=== PATIENT | male | born 1985 | race Caucasian/White ===

== ENCOUNTER → 2018-08-21 17:57 | Outpatient (CLI) | payer OTHER, SELFPAY ==
--- NOTE | 2018-08-21 | DI.MRI.S_ITS ---
PROCEDURE: MR THORACIC SPINE WO CON INDICATIONS: mid back pain TECHNIQUE: Noncontrast sagittal T1 spine echo and T2 fast spin echo, sagittal STIR, axial T1 and T2 fast spin echo through the thoracic spine. COMPARISON: [facility], CR, XR THORACIC SPINE 3 VIEWS, 08/02/2018, 10:12. FINDINGS: Image quality: Excellent. Alignment and Curvature: There is normal bony alignment. Bone Marrow: Small, benign, intraosseous hemangiomas noted in the T4 and T6 vertebral bodies. Mild reactive endplate changes noted adjacent to the T6-T7, T7-T8 and T8-T9 disc. No acute vertebral body compression fractures. Spinal Cord: Visualized spinal cord is normal in size and signal. Paraspinous Soft Tissues: No paravertebral masses. Miscellaneous: Loss of signal noted at T7-T8, T8-T9, T9-T10 discs. Loss of disc height noted at T7-T8-T8-T9 disc. Small central T7-T8 disc protrusion noted. No central stenosis. No neural foraminal narrowing. No neural impingement. IMPRESSION: 1. Moderate T7-T8 and T8-T9 degenerative disc disease. Mild T9-T10 degenerative disc disease. 2. No central stenosis. 3. No neural foraminal narrowing. 4. No neural impingement. Dictated by: Linette Grady MD, PhD on 08/22/2018 at 10:48 Approved by: Linette Grady MD, PhD on 08/22/2018 at 10:55
--- NOTE | 2018-08-21 | DI.MRI.S_ITS ---
PROCEDURE: MR CERVICAL SPINE W/O INDICATIONS: neck pain TECHNIQUE: Noncontrast sagittal T1 spin echo and T2 fast spin echo, sagittal STIR, foraminal oblique sagittal T2 fast spin echo, axial gradient echo or T2 fast spin echo through the cervical spine. After the administration of contrast, axial and sagittal T1 spin echo with fat saturation through the cervical spine. COMPARISON: [facility], CR, XR CERVICAL SPINE WITH OBLIQUES, 08/02/2018, 10:12. FINDINGS: Image quality: Excellent. Alignment and curvature: There is normal bony alignment. Marrow: Marrow is normal in overall signal, without suspicious enhancement. Spinal cord: Visualized spinal cord has normal size and signal. No cerebellar tonsillar herniation. No abnormal intramedullary enhancement. Paraspinous soft tissues: No paravertebral masses or suspicious enhancement. C2-3: Normal appearance. C3-4: Loss of disc signal. Mild, diffuse disc bulge. No central stenosis. Moderate right neural foraminal narrowing. No neural impingement. C4-5: Loss of disc signal. Minimal, diffuse disc bulge. Mild bilateral facet hypertrophy. No central stenosis. Mild bilateral neural foraminal narrowing. No neural impingement. C5-6: Loss of disc signal. Mild bilateral facet hypertrophy. No central stenosis. No neural foraminal narrowing. No neural impingement. C6-7: Normal appearance. C7-T1: Normal appearance. IMPRESSION: 1. Mild multilevel degenerative disc disease. 2. Mild multilevel facet arthropathy. 3. No central stenosis. 4. Moderate right C3-C4 neural foraminal narrowing. Mild bilateral C4-C5 neural foraminal narrowing. 5. No neural impingement. Dictated by: Linette Grady MD, PhD on 08/22/2018 at 8:10 Approved by: Linette Grady MD, PhD on 08/22/2018 at 11:45
== END ==
PROVIDERS: Visit Provider Family Medicine
DX: M51.34 Other intervertebral disc degeneration, thoracic region (principal); M50.31 Other cervical disc degeneration, high cervical region; M48.02 Spinal stenosis, cervical region; M47.812 Spondylosis without myelopathy or radiculopathy, cervical region
CPT/HCPCS: 72142; 72146

== ENCOUNTER → 2018-09-24 07:44 | Outpatient (CLI) | payer OTHER, SELFPAY ==
--- NOTE | 2018-09-24 | DI.ECHO.S_ITS ---
[facility]---------+ [facility] +---------+ : : [address] : : : : [id number] : : : : Phone: [phone]+ Echocardiogram Report + + :Name: SHAMAR VALENZUELA Study Date: 09/24/2018 Height: 72 in : :[facility] Exam Location: [place] Weight: 245 lb : : Gender: Male BSA: 2.3 m2 : :: 1985 Age: 33 yrs BP: 110/90 mmHg: :Reason For Study: Chest pain : : Performed By: Vivian Page : :Referring: DAVID CABRERA : + + Interpretation Summary The left ventricle is normal in size. The ejection fraction is estimated to be 55-60%. The right ventricle is normal in size and function. No significant valvular pathology seen. There is no pericardial effusion. Procedure: A two-dimensional transthoracic echocardiogram with color flow and Doppler was performed. The study quality was technically adequate. There is no prior echocardiogram noted for this patient. The patient was in normal sinus rhythm during the exam. Left Ventricle: The left ventricle is normal in size. There is normal left ventricular wall thickness. There is no thrombus. A false chord is noted (normal variant). The ejection fraction is estimated to be 55-60%. There are no focal wall motion abnormalities. Diastolic parameters suggest a relaxation abnormality of the left ventricle, consistent with probable normal filling pressures. Right Ventricle: The right ventricle is normal in size and function. Atria: Both atria are normal in size. There is no Doppler evidence for an interatrial shunt. Mitral Valve: The mitral valve is normal in structure and function. There is no mitral regurgitation noted. Aortic Valve: The aortic valve is trileaflet. The aortic valve opens well. There is no aortic valve stenosis. No aortic regurgitation is present. Tricuspid Valve: The tricuspid valve is normal in structure and function. There is a trace or physiologic amount of tricuspid regurgitation. Pulmonary artery pressures cannot be estimated because of the lack of a measurable TR jet velocity. Pulmonic Valve: The pulmonic valve is not well visualized. There is a trace or physiologic amount of pulmonic regurgitation. Great Vessels: The aortic root is normal size. The ascending aorta is at the upper limits of normal in size. The pulmonary artery is not well visualized, but is probably normal size. The IVC is of normal diameter and collapses greater than 50% with a sniff. This suggests a low right atrial pressure of 3 mm Hg. Pericardium/ Pleura There is no pericardial effusion. There is no pleural effusion. MMode/2D Measurements & Calculations LVIDd: 4.3 cm LVOT diam: 2.3 cm LVIDs: 2.8 cm Ao root diam: 3.3 cm FS: 33.7 % asc Aorta Diam: 3.5 cm EPSS: 0.40 cm IVSd: 1.0 cm LVPWd: 0.76 cm LV rice. diameter/BSA (cm/m^2): 1.8 LV sys. diameter/BSA (cm/m^2): 1.2 LA A2 area: 15.7 cm2 RA long axis: 5.4 cm LA A4 area: 15.7 cm2 RA area: 16.7 cm2 LA length (vol): 5.4 cm RA vol: 43.8 ml LA vol: 38.7 ml RA : 18.9 ml/m2 LA vol index: 16.7 ml/m2 IVC diam: 1.8 cm RVD1 (basal): 4.1 cm TAPSE: 2.2 cm Doppler Measurements & Calculations Ao V2 max: 95.6 cm/sec LVOT Max Cyrus: 57.0 cm/sec Ao V2 mean: 74.3 cm/sec LV V1 max P.3 mmHg Ao max P.7 mmHg LV V1 VTI: 9.4 cm Ao mean P.3 mmHg DONNA(I,D): 2.5 cm2 Ao V2 VTI: 14.8 cm DONNA(V,D): 2.4 cm2 sev ratio: 0.63 DONNA indexed to BSA (cm^2/m^2): 1.1 MV E max cyrus: 53.0 cm/sec PA V2 max: 65.3 cm/sec MV A max cyrus: 58.3 cm/sec PA V2 mean: 47.4 cm/sec MV E/A: 0.91 PA mean P.96 mmHg Med Peak E' Cyrus: 6.4 cm/sec PA Accel Time: 0.12 sec E/E' med: 8.3 Lat Peak E' Cyrus: 9.6 cm/sec E/E' lat: 5.5 E/e' average: 6.9 MV dec time: 0.12 sec MV P1/2t: 33.1 msec MV P1/2t max cyrus: 52.2 cm/sec SV(LVOT): 37.6 ml MVA(P1/2william): 6.6 cm2 Reading Physician:IVETH
== END ==
PROVIDERS: PCP Family Medicine; Visit Provider Physician Assistant
DX: R07.9 Chest pain, unspecified (principal)
CPT/HCPCS: 93306

== ENCOUNTER → 2018-10-30 13:24 | Outpatient (CLI) | payer OTHER, SELFPAY ==
--- NOTE | 2018-10-30 | DI.MRI.S_ITS ---
PROCEDURE: MR WRIST LT W CON INDICATIONS: PAIN IN LEFT WRIST TECHNIQUE: After the administration of 3-4 mL of dilute intra-articular Gadolinium contrast into the radiocarpal compartment, coronal T1 spin echo with fat saturation and T2 fast spin echo with fat saturation, axial T1 spin echo and T2 fast spin echo with fat saturation, sagittal T1 spin echo with and without fat saturation through the wrist. COMPARISON: None. FINDINGS: Image quality: Excellent. Bones and cartilage: The carpal bones are normally aligned. No bone marrow contusions or fractures. No evidence for avascular necrosis. Overlying cartilage surfaces appear normal. Carpal ligaments: The scapholunate and lunotriquetral ligaments appear intact, without gadolinium extravasation into the mid-carpal compartment. The radioscaphocapitate and radiolunotriquetral ligaments appear intact. The arcuate ligament and short radiolunate ligament also appear normal. The dorsal intercarpal and radiotriquetral ligaments appear intact. On sagittal images, the pisohamate ligament appears intact. Triangular fibrocartilage complex: There is a tear of the triangular fibrocartilage (series 4, image 8) with gadolinium extravasation into the distal radioulnar joint. The adjacent meniscal homolog appears normal. The ulnar collateral ligament appears intact. The extensor carpi ulnaris tendon is normal in location and morphology. Tendons and soft tissues: The carpal tunnel structures appear normal, including the median nerve. The ulnar nerve appears normal within Guyon's canal. All six extensor tendon compartments demonstrate normal morphology. Small amount of fluid without presence of gadolinium noted in the second and third extensor compartments compatible with mild tenosynovitis. No soft tissue ganglion cysts. IMPRESSION: 1. Central tear of triangle fibrocartilage. 2. Mild second and third extensor compartment tenosynovitis. Dictated by: Linette Grady MD, PhD on 10/30/2018 at 15:42 Approved by: Linette Grady MD, PhD on 10/31/2018 at 8:50
--- NOTE | 2018-10-30 | DI.RAD.S_ITS ---
PROCEDURE: FL ARTHROGRAM WRIST LT INDICATIONS: PAIN IN LEFT WRIST TECHNIQUE: After informed consent had been obtained, the wrist was examined fluoroscopically, and a site chosen for injection of the radiocarpal compartment from a dorsal approach. Skin was prepped and draped in a sterile fashion and 1% lidocaine infiltrated from the skin down to the articular surface. A hypodermic needle was then introduced into the articular space and a modest amount of contrast medium was instilled confirming intra-articular needle tip placement. This was followed by approximately 4 mL of a dilute gadolinium solution. Needle was removed and dressing was applied. The patient experienced no complications throughout the procedure and left the fluoroscopic suite in no apparent distress. FINDINGS: A single fluoroscopic spot image demonstrates intra-articular location to injected iodinated contrast. IMPRESSION: Successful fluoroscopic-guided administration of dilute Gadolinium solution for wrist MR arthrogram. Dictated by: Torsten Roldan M.D. on 10/30/2018 at 15:06 Approved by: Torsten Roldan M.D. on 10/30/2018 at 15:07
== END ==
PROVIDERS: PCP Family Medicine; Visit Provider Orthopaedic Surgery
DX: M25.532 Pain in left wrist (principal); M65.832 Other synovitis and tenosynovitis, left forearm; S63.592A Other specified sprain of left wrist, initial encounter
CPT/HCPCS: 25246; 73222; 77002

== ENCOUNTER → 2018-12-13 14:13 | Outpatient (CLI) | payer OTHER, SELFPAY ==
--- NOTE | 2018-12-13 14:16 | DI.MRI.S_ITS ---
PROCEDURE: MR HEAD/BRAIN WO/W CON INDICATIONS: Migraine and cluster headaches TECHNIQUE: Noncontrast axial T1 spin echo, axial T2 fast spin echo, sagittal and axial FLAIR, coronal T2 fast spin echo, axial gradient echo, axial diffusion and ADC through the brain. After the administration of contrast, axial and coronal 3D VIBE or T1 spin echo with fat saturation through the brain. COMPARISON: None. FINDINGS: Image quality: Excellent. CSF Spaces: Basal cisterns are patent. No extra-axial fluid collections. Ventricles are normal in size and shape. Brain: No midline shift. No intracranial bleeds or masses. No abnormal intracranial enhancement. The brainstem appears normal. Diffusion-weighted images demonstrate no acute ischemic insults. No chronic ischemic insults. Normal intravascular flow voids are present. Skull and face: Calvarial marrow is normal in signal. Orbits appear normal. Sinuses: Sinuses and mastoids appear clear. IMPRESSION: Unremarkable intracranial study, without an imaging explanation found for the patient's presenting history of headache. No masses or abnormal enhancement can be seen. Dictated by: Luke Love M.D. on 12/13/2018 at 14:28 Approved by: Luke Love M.D. on 12/13/2018 at 14:29
== END ==
PROVIDERS: PCP Family Medicine; Visit Provider Family Medicine
DX: G44.009 Cluster headache syndrome, unspecified, not intractable (principal)
CPT/HCPCS: 70553

== ENCOUNTER 2019-04-01 07:18 | Outpatient (CLI) | payer OTHER, SELFPAY ==
[2019-04-01] VITALS (8 sets, daily range): BP systolic 120–138; BP diastolic 71–99; PULSE 74–103; RESP 16–94; TEMP 36.3; O2SAT 92–100
--- NOTE | 2019-04-01 07:20 | DI.RAD.S_ITS ---
PROCEDURE: PAIN C/T INTERLAMINAR INJECT INDICATIONS: SPONDYLOSIS FINDINGS: Fluoroscopic spot filming was performed to verify placement of spinal needles at the T8-T9 level(s), as labeled on the films. Appropriate location(s) of the needle tip(s) was confirmed by injection of iodinated contrast. IMPRESSION: Fluoroscopy for pain management. Dictated by: Kip Whitley M.D. on 04/01/2019 at 9:42 Approved by: Kip Whitley M.D. on 04/01/2019 at 9:43
[2019-04-01] MEDS: MIDAZOLAM 5 MG/5 ML VIAL IV (08:46)
[2019-04-01] MEDS: fentaNYL 100 MCG/2 ML INJ 50 MCG IV (08:47)
[2019-04-01] MEDS: LIDOCAINE 1% 20 ML 5 ML INJ (08:50)
[2019-04-01] MEDS: IOPAMIDOL 15 ML VIAL 3 ML INJ (08:50)
[2019-04-01] MEDS: DEXAMETHASONE 10 MG/ML VIAL 30 MG INJ (08:51)
--- NOTE | 2019-04-01 08:56 | PC.NURSE ---
ASSISTING PT OFF TABLE AND TRANSPORTING TO POST PROC AREA IN STABLE CONDITION. PT RN CARE PASSED ON TO DEDE Ruano RN.
--- NOTE | 2019-04-01 09:00 | P.PCN_ITS ---
Procedures Date/Time Date of procedure: 04/01/19 Time of procedure: 09:00 General Procedure description: Preop diagnosis: Thoracic stenosis with HNP Postprocedure diagnosis: Thoracic stenosis with HNP Physician: Riaz Escamilla D.O. Indications: Gatito is referred by Dr. Jauregui for treatment of thoracic DDD/DJD with radiculopathy Description of procedure: Fluoroscopic guided, contrast controlled T8-9 translaminar epidural steroid inj ection with conscious sedation. Following review of allergy review potential side effects and complications, including, but not necessarily limited to, infection, allergic reaction, local tissue breakdown, temporary as well as permanent nerve injury, stroke, paralysis and possible , the patient indicated that they understood and agreed to proceed. An informed consent document was signed by the patient, witnessed by the nurse, and placed in the patient's chart. Additionally other treatment options including modalities, medications and physical therapy were reviewed with the patient. After review of previous anaesthesic history and IV conscious sedation the patient was deemed safe to proceed with todays procedure with IV conscious sedation as ASA class II designation. Safety time-out was performed to confirm patient ID, procedure to be performed and site of procedure. IV sedation was accomplished with a combination of 3mg of Versed and 50mcg of Fentanyl administered by the RN after DO order, titrated to patient comfort during the course of the procedure while the patient remained responsive to all verbal commands In the prone position, following sterile prep and drape of the thoracic region the T8-9 translaminar space was identified fluoroscopically. The skin was anesthetized via 25 gauge 20 mm sheath with 1% lidocaine solution. At this point a 20 gauge epidural needle was atraumatically introduced and advanced under fluoroscopic guidance into the region of the T8-9 translaminar space depth was confirmed on lateral view. Radiographic data, including multiple fluoroscopic views of the thoracic spine, reveals spinal needle at the T8-9 translaminar space. Lateral views then showed the placement of the needle in the epidural space. Subsequent view show contrast material flowing superiorly and inferiorly in the epidural space. No vascular or intrathecal uptake is observed. At this point using loss of resistance technique with saline and the epidural space was entered. This was confirmed followed negative aspiration and injection of approximately 1.5 cc of Isovue 200 showed excellent epidural flow without vascular or intrathecal uptake. At this point, 1cc of 1% lidocaine solution was admitted as a test dose and the patient was observed for an appropriate period of time without signs or symptoms of complications, including abdominal pain, shortness of breath, bilateral upper and lower extremity weakness, nausea and vomiting, prior to steroid injection. Subsequently, 3cc or 30mg of dexamethasone was then injected without incident. The patient tolerated the procedure well without signs of complications and subsequently was transferred to the recovery room for further monitoring. The patient was then transferred to the recovery area with their observed for an appropriate time after the injection. Patient reported a VAS score of 7 prior to the procedure and postprocedure VAS of 2. Total fluoroscopy time: 56.3 sec Total conscious sedation time: 24 min Riaz Escamilla D.O. Complications: none
--- NOTE | 2019-04-01 09:25 | PC.NURSE ---
discharge note: Arrive for post procedure monitoring. VSS on arrival. O2 Sat WNL. Tolerating PO without nausea. Pain level 4/10 on arrival. Denies any unusual numbness or tingling. IV discontinued. Stable for discharge to home. Ambulated to car at 0922
== END 2019-04-01 09:22 ==
LOC: RAD 07:20
PROVIDERS: PCP Family Medicine; Visit Provider Physical Medicine & Rehabilitation
DX: M48.04 Spinal stenosis, thoracic region (principal); M51.14 Intervertebral disc disorders with radiculopathy, thoracic region; M47.24 Other spondylosis with radiculopathy, thoracic region
CPT/HCPCS: 62321; 99152; J1100; J2250; J3010